=== PATIENT | female | born 1990 | race Caucasian/White ===

== ENCOUNTER 2017-02-03 02:01 | Emergency (ER) | payer MEDICAID, OTHER ==
[~2017-02-03] VITALS: Ht 167.6 cm; Wt 94.5 kg
[~2017-02-03 02:01] MED LIST: PREN-127 PO
[2017-02-03] MEDS ORDERED: KETOROLAC 30MG/ML VIAL IM STA (05:19)
[2017-02-03 05:32] LABS: CLARITY URINE CLEAR (CLEAR); COLOR URINE YELLOW (YELLOW); GLUCOSE URINE NEGATIVE (NEGATIVE); KETONES URINE NEGATIVE (NEGATIVE); LEUKOCYTE ESTERASE URINE TRACE (NEGATIVE); NITRITE URINE NEGATIVE (NEGATIVE); OCCULT BLOOD URINE NEGATIVE (NEGATIVE); PROTEIN URINE NEGATIVE (NEGATIVE); SPECIFIC GRAVITY URINE 1.015 (1.005-1.030); UROBILINOGEN URINE 0.2 E.U./dL (0.2-1.0)
[2017-02-03 05:37] LABS: HEMOGLOBIN. 12.2 g/dL (12.0-16.0); MEAN CORPUSCULAR HEMOGLOBIN 29.5 pg (28.0-32.0); MEAN CORPUSCULAR HGB CONC 33.8 g/dL (31.0-37.0); MEAN CORPUSCULAR VOLUME 87.3 fL (81.0-99.0); MEAN PLATELET VOLUME 10.3 fl (7.4-10.4); PLATELET 214 x1000/uL (130-400); RED BLOOD CELL COUNT 4.13 mill/uL (4.2-5.4); RED CELL DISTRIBUTION WIDTH 12.9 % (11.6-14.6); WHITE BLOOD COUNT 11.7 x1000/uL (4.5-11.0)
[2017-02-03 05:38] LABS: DIFFERENTIAL COMMENT 1
[2017-02-03 05:41] LABS: CHLORIDE 106 mEq/L (98-107); INDEX HEMOLYSI 1 (1-3); INDEX ICTERIC 1 (1-4); INDEX LIPEMIC 1 (1-3)
[2017-02-03 05:43] LABS: PROTHROMBIN TIME 10.7 sec
[2017-02-03 05:49] LABS: ALANINE AMINOTRANSFERASE 17 IU/L (13-61); ALBUMIN 3.3 g/dL (3.4-5.0); ANION GAP 8; CALCIUM 8.7 mg/dL (8.5-10.1); CARBON DIOXIDE 32 mEq/L (21-32); LIPASE 121 IU/L (73-393); UREA NITROGEN BLOOD 10 mg/dL (7-21); eGFR > 60 mL/min (>60)
[2017-02-03 06:13] LABS: SQUAMOUS EPITHELIAL CELL URINE FEW /lpf (RARE/1+)
[2017-02-03 06:16] LABS: WBC URINE 0-2 /hpf (0-2)
[2017-02-03 06:30] VITALS: BP 112/64
[2017-02-03 06:33] LABS: RBC URINE NONE SEEN /hpf (0-2)
[2017-02-03 06:34] LABS: BACTERIA URINE TRACE
[2017-02-03 06:48] LABS: PLATELET ESTIMATE NORMAL
== END 2017-02-03 07:25 | disposition home or self-care (01) ==
LOC: ER 02:30
DX: N83.02 Follicular cyst of left ovary (principal); N83.01 Follicular cyst of right ovary
CPT/HCPCS: 36415; 76830; 76856; 80053; 81001; 81025; 83690; 85025; 85610; 96372; 99285; J1885; Z7610

== ENCOUNTER 2018-04-05 10:50 | Observation (INO) | payer OTHER ==
[~2018-04-05] VITALS: Ht 172.7 cm; Wt 83.5 kg
[2018-04-05 12:14] LABS: CLARITY URINE CLEAR (CLEAR); COLOR URINE YELLOW (YELLOW); KETONES URINE NEGATIVE (NEGATIVE); LEUKOCYTE ESTERASE URINE 2+ (NEGATIVE); NITRITE URINE NEGATIVE (NEGATIVE); OCCULT BLOOD URINE NEGATIVE (NEGATIVE); PROTEIN URINE NEGATIVE (NEGATIVE); SPECIFIC GRAVITY URINE 1.018 (1.005-1.030)
[2018-04-05] MEDS ORDERED: LACTATED RINGERS 1,000 ML IV SCH (12:15)
[2018-04-05] MEDS ORDERED: CEFAZOLIN 2,000 MG in DEXT 5% WATER 100 ML IV SCH (12:30)
== END 2018-04-05 13:45 | disposition home or self-care (01) ==
LOC: L&D 10:50
PROVIDERS: ADMIT Obstetrics & Gynecology; ATTEND Obstetrics & Gynecology
DX: O26.892 Other specified pregnancy related conditions, second trimester (principal); R10.32 Left lower quadrant pain; N89.8 Other specified noninflammatory disorders of vagina; Z3A.22 22 weeks gestation of pregnancy
CPT/HCPCS: 81003; 96361; 96365; 99281; G0378; J0690; J7120; 96360; J7060

== ENCOUNTER 2018-07-14 03:29 | Inpatient (IN) | payer OTHER ==
[~2018-07-14] VITALS: Ht 172.7 cm; Wt 104.3 kg
[2018-07-14] MEDS ORDERED: DEXT 5%/LR + PITOCIN 20UNITS/L 1,000 ML IV SCH ×2 (05:06→23:28)
[2018-07-14] MEDS ORDERED: BUTORPHANOL TARTRATE 2 MG/ML VIAL IV PRN (05:15)
[2018-07-14] MEDS ORDERED: NALOXONE HCL 0.4 MG/ML 1ML VIAL IM PRN (05:15)
[2018-07-14] MEDS ORDERED: METHYLERGONOVINE MALEATE 0.2 MG/ML IM PRN (05:15)
[2018-07-14] MEDS ORDERED: LIDOCAINE HCL 1% 20ML VIAL (Pyxis) INJ INFIL SCH (05:15)
[2018-07-14] MEDS: PENICILLIN G POTASSIUM 5 MMU in DEXT 5% WATER 100 ML IV SCH ×2 (05:39→05:46)
[2018-07-14] MEDS: LACTATED RINGERS 1,000 ML IV SCH ×3 (05:46→22:06)
[2018-07-14 06:36] LABS: BASOPHILS % 0.6 % (0.0-2.0); EOSINOPHILS % 1.1 % (0.0-5.0); HEMATOCRIT. 36.9 % (36.0-48.0); HEMOGLOBIN. 12.1 g/dL (12.0-16.0); LYMPHOCYTES % 21.2 % (20.0-50.0); MEAN CORPUSCULAR HEMOGLOBIN 28.7 pg (28.0-32.0); MEAN CORPUSCULAR VOLUME 87.1 fL (81.0-99.0); MEAN PLATELET VOLUME 10.7 fl (7.4-10.4); MONOCYTES % 4.7 % (2.0-8.0); NEUTROPHILS % 72.4 % (40.0-76.0); PLATELET 292 x1000/uL (130-400); RED BLOOD CELL COUNT 4.23 mill/uL (4.2-5.4); RED CELL DISTRIBUTION WIDTH 14.5 % (11.6-14.6)
[2018-07-14 06:48] LABS: CLARITY URINE CLEAR (CLEAR); COLOR URINE YELLOW (YELLOW); INR 0.9; KETONES URINE NEGATIVE (NEGATIVE); LEUKOCYTE ESTERASE URINE NEGATIVE (NEGATIVE); NITRITE URINE NEGATIVE (NEGATIVE); OCCULT BLOOD URINE NEGATIVE (NEGATIVE); PARTIAL THROMBOPLASTIN TIME 26.5 sec (23.4-31.0); PROTEIN URINE NEGATIVE (NEGATIVE); PROTHROMBIN TIME 9.3 sec (9.1-11.1); UROBILINOGEN URINE 0.2 E.U./dL (0.2-1.0)
[2018-07-14 06:58] LABS: *AMPHETAMINES SCREEN URINE NEGATIVE (NEGATIVE); *BARBITURATES SCREEN URINE NEGATIVE (NEGATIVE); *BENZODIAZEPINES SCREEN URINE NEGATIVE (NEGATIVE); *COCAINE SCREEN URINE NEGATIVE (NEGATIVE)
[2018-07-14 06:59] LABS: CANNABINOID URINE SCREEN NEGATIVE (NEGATIVE); METHADONE URINE SCREEN NEGATIVE (NEGATIVE); OPIATES URINE SCREEN NEGATIVE (NEGATIVE); PHENCYCLIDINE URINE SCREEN NEGATIVE (NEGATIVE)
[2018-07-14 07:36] LABS: HEPATITIS B SURFACE ANTIGEN NEGATIVE
[2018-07-14] MEDS: PENICILLIN G POTASSIUM 2.5 MMU in DEXTROSE 5% WATER 50 ML IV SCH ×3 (13:52→22:05)
[2018-07-14] MEDS ORDERED: BUPIVACAINE HCL/NS/PF EPIDURAL 100 ML EP ONE (20:13)
[2018-07-14] MEDS ORDERED: FENTANYL CITRATE/PF 50MCG/ML 2ML VIAL ONE (20:14)
[2018-07-14] MEDS ORDERED: DIPHENHYDRAMINE 25MG CAPSULE PO PRN (23:30)
[2018-07-14] MEDS ORDERED: HEMORRHOIDAL SUPP PR PRN (23:30)
[2018-07-14] MEDS ORDERED: LANOLIN OINT 0.25 GM TUBE TOP PRN (23:30)
[2018-07-14] MEDS ORDERED: GLYCERIN/WITCH HAZEL LEAF MEDICATED PAD TOP PRN (23:30)
[2018-07-14] MEDS ORDERED: BISACODYL 10MG SUPP PR PRN (23:30)
[2018-07-14] MEDS ORDERED: ACETAMINOPHEN WITH CODEINE 300/30MG TABLET PO PRN ×2 (23:30)
[2018-07-15 02:10] VITALS: BP 125/68
[2018-07-15 04:00] VITALS: BP 121/65
[2018-07-15 07:51] VITALS: BP 107/60
[2018-07-15] MEDS: SIMETHICONE 80MG TABLET CHEW PO SCH ×4 (08:48→21:01)
[2018-07-15] MEDS: IBUPROFEN 400MG TABLET PO PRN ×2 (08:48→17:31)
[2018-07-15] MEDS: PRENATAL VIT/FE FUMARATE/FA TABLET PO SCH (08:48)
[2018-07-15] MEDS ORDERED: TETANUS, DIPHTHERIA, PERTUSSIS VAC/PF 0.5ML (>7YR OLD) IM ONE (10:00)
[2018-07-15] MEDS ORDERED: INFLUENZA VIRUS VACCINE(AFLURIA) 0.5ML SYR IM ONE (10:00)
[2018-07-15 10:42] LABS: BASOPHILS % 0.2 % (0.0-2.0); EOSINOPHILS % 0.4 % (0.0-5.0); HEMATOCRIT. 35.1 % (36.0-48.0); HEMOGLOBIN. 11.7 g/dL (12.0-16.0); LYMPHOCYTES % 12.9 % (20.0-50.0); MEAN CORPUSCULAR VOLUME 87.1 fL (81.0-99.0); MEAN PLATELET VOLUME 10.6 fl (7.4-10.4); MONOCYTES % 6.5 % (2.0-8.0); PLATELET 267 x1000/uL (130-400); RED BLOOD CELL COUNT 4.02 mill/uL (4.2-5.4); RED CELL DISTRIBUTION WIDTH 14.5 % (11.6-14.6)
[2018-07-15] MEDS: FERROUS SULFATE 325MG TABLET PO SCH ×2 (13:08→17:31)
[2018-07-15 16:15] VITALS: BP 104/60
[2018-07-15 20:00] VITALS: BP 120/75
[2018-07-15] MEDS ORDERED: DOCUSATE SODIUM 100MG CAPSULE PO SCH (21:00)
[2018-07-16 06:00] VITALS: BP 115/68
[2018-07-16 07:54] VITALS: BP 102/50
[2018-07-16] MEDS: PRENATAL VIT/FE FUMARATE/FA TABLET PO SCH (08:29)
[2018-07-16] MEDS: FERROUS SULFATE 325MG TABLET PO SCH (08:29)
[2018-07-16] MEDS: SIMETHICONE 80MG TABLET CHEW PO SCH (08:29)
[2018-07-16] MEDS: IBUPROFEN 400MG TABLET PO PRN (08:30)
[2018-07-16] MEDS ORDERED: TETANUS, DIPHTHERIA, PERTUSSIS VAC/PF 0.5ML (>7YR OLD) IM ONE (09:00)
[2018-07-16] MEDS ORDERED: MEDROXYPROGESTERONE ACETATE 150MG/ML VIAL IM ONE (09:00)
[2018-07-16] MEDS ORDERED: INFLUENZA VIRUS VACCINE(AFLURIA) 0.5ML SYR IM ONE (10:00)
== END 2018-07-16 12:45 | disposition home or self-care (01) | DRG 560 ==
LOC: OBSVTOIN 03:29 → L&D 03:29 → 7EST PP/OB 07-15 01:07
PROVIDERS: ADMIT Obstetrics & Gynecology; ATTEND Obstetrics & Gynecology
PROC: 3E0R3BZ Introduction of Anesthetic Agent into Spinal Canal, Percutaneous Approach (ICD-10-PCS; 2018-07-14)
PROC: 00HU33Z Insertion of Infusion Device into Spinal Canal, Percutaneous Approach (ICD-10-PCS; 2018-07-14)
PROC: 10E0XZZ Delivery of Products of Conception, External Approach (ICD-10-PCS; principal; 2018-07-14 23:12)
DX: O69.81X0 Labor and delivery complicated by cord around neck, without compression, not applicable or unspecified (principal); O99.324 Drug use complicating childbirth; F12.10 Cannabis abuse, uncomplicated; Z37.0 Single live birth; Z3A.36 36 weeks gestation of pregnancy
CPT/HCPCS: 36415; 80305; 86592; 86703; 86762; 86850; 86900; 87340; 90471; 90686; 90715; 96365; 96366; 99281; G0378; J2310; J2540; J2590; J3010; J3490; J7030; J7060; J7120

== ENCOUNTER 2019-07-09 21:12 | Observation (INO) | payer OTHER ==
[2019-07-09] MEDS ORDERED: LACTATED RINGERS 1,000 ML IV SCH (22:23)
[2019-07-09 23:30] LABS: CLARITY URINE CLEAR (CLEAR); COLOR URINE YELLOW (YELLOW); KETONES URINE NEGATIVE (NEGATIVE); LEUKOCYTE ESTERASE URINE 1+ (NEGATIVE); NITRITE URINE NEGATIVE (NEGATIVE); OCCULT BLOOD URINE NEGATIVE (NEGATIVE); PROTEIN URINE NEGATIVE (NEGATIVE); SPECIFIC GRAVITY URINE 1.019 (1.005-1.030)
[2019-07-09 23:50] LABS: *AMPHETAMINES SCREEN URINE NEGATIVE (NEGATIVE); *BARBITURATES SCREEN URINE NEGATIVE (NEGATIVE); *BENZODIAZEPINES SCREEN URINE NEGATIVE (NEGATIVE); *COCAINE SCREEN URINE NEGATIVE (NEGATIVE); METHADONE URINE SCREEN NEGATIVE (NEGATIVE); OPIATES URINE SCREEN NEGATIVE (NEGATIVE)
[2019-07-09 23:51] LABS: CANNABINOID URINE SCREEN NEGATIVE (NEGATIVE); PHENCYCLIDINE URINE SCREEN NEGATIVE (NEGATIVE)
== END 2019-07-10 00:35 | disposition home or self-care (01) ==
LOC: OB TRIAGE 21:12
PROVIDERS: ADMIT Obstetrics & Gynecology; ATTEND Obstetrics & Gynecology
DX: O26.893 Other specified pregnancy related conditions, third trimester (principal); M54.9 Dorsalgia, unspecified; O62.9 Abnormality of forces of labor, unspecified; Z3A.36 36 weeks gestation of pregnancy
CPT/HCPCS: 80305; 81003; 99281; G0378

== ENCOUNTER 2019-07-17 13:15 | Observation (INO) | payer OTHER ==
[~2019-07-17] VITALS: Ht 170.2 cm; Wt 97.1 kg
== END 2019-07-17 15:30 | disposition home or self-care (01) ==
LOC: 8 EST LDRP 13:15
PROVIDERS: ADMIT Specialist; ATTEND Specialist
DX: O62.9 Abnormality of forces of labor, unspecified (principal); O42.92 Full-term premature rupture of membranes, unspecified as to length of time between rupture and onset of labor; Z3A.37 37 weeks gestation of pregnancy
CPT/HCPCS: 99281; G0378

== ENCOUNTER 2019-08-02 19:32 | Observation (INO) | payer OTHER ==
[~2019-08-02] VITALS: Ht 170.2 cm; Wt 104.3 kg
[2019-08-02] MEDS ORDERED: PNV1TABL50 PO (20:51)
== END 2019-08-02 21:04 | disposition home or self-care (01) ==
LOC: 8 EST LDRP 19:32
PROVIDERS: ADMIT Obstetrics & Gynecology; ATTEND Obstetrics & Gynecology
DX: O62.9 Abnormality of forces of labor, unspecified (principal); Z3A.39 39 weeks gestation of pregnancy
CPT/HCPCS: 99281; G0378

== ENCOUNTER 2022-03-21 11:07 | Emergency (ER) | payer MEDICAID, OTHER ==
[~2022-03-21] VITALS: Ht 172.7 cm; Wt 82.0 kg
[~2022-03-21 11:07] MED LIST changes: +PNV1TABL50 PO; -PREN-127 PO
[2022-03-21] MEDS ORDERED: KETOROLAC 30MG/ML VIAL IM ONE (13:15)
[2022-03-21] MEDS ORDERED: CYCLOBENZAPRINE 10MG TABLET PO ONE (13:15)
[2022-03-21] MEDS ORDERED: CYCL10TA21 MT (13:21)
[2022-03-21] MEDS ORDERED: NAPR-1176 MT (13:21)
[2022-03-21 14:04] LABS: CLARITY URINE CLEAR (CLEAR); COLOR URINE YELLOW (YELLOW); KETONES URINE NEGATIVE (NEGATIVE); LEUKOCYTE ESTERASE URINE 1+ (NEGATIVE); NITRITE URINE NEGATIVE (NEGATIVE); OCCULT BLOOD URINE NEGATIVE (NEGATIVE); PH URINE 5.5 (4.5-8.0); PROTEIN URINE NEGATIVE (NEGATIVE); SPECIFIC GRAVITY URINE 1.021 (1.005-1.030); UROBILINOGEN URINE 0.2 E.U./dL (0.2-1.0)
[2022-03-21] MEDS ORDERED: CEPH500C2 MT (14:52)
[2022-03-21 15:23] VITALS: BP 136/64
== END 2022-03-21 15:24 | disposition home or self-care (01) ==
LOC: ER 11:07
DX: M54.9 Dorsalgia, unspecified (principal); N39.0 Urinary tract infection, site not specified
CPT/HCPCS: 72100; 81003; 87086; 96372; 99284; J1885

== ENCOUNTER 2023-05-09 16:26 | Emergency (ER) | payer MEDICAID, OTHER ==
[~2023-05-09] VITALS: Ht 172.7 cm; Wt 100.0 kg
[~2023-05-09 16:26] MED LIST changes: +CEPH500C2 MT; +CYCL10TA21 MT; +NAPR-1176 MT
[2023-05-09 16:32] VITALS: BP 136/59; O2SAT 98
[2023-05-09] MEDS ORDERED: IBUPROFEN 600MG TABLET PO ONE (18:00)
[2023-05-09] MEDS ORDERED: IBUP-2029 MT (19:28)
[2023-05-09 19:49] VITALS: PULSE 77; RESP 18; TEMP 98.5
== END 2023-05-09 19:52 | disposition home or self-care (01) ==
LOC: ER 16:26
DX: S90.02XA Contusion of left ankle, initial encounter (principal); S30.0XXA Contusion of lower back and pelvis, initial encounter; W20.8XXA Other cause of strike by thrown, projected or falling object, initial encounter; Y93.89 Activity, other specified; Y92.89 Other specified places as the place of occurrence of the external cause; Y99.8 Other external cause status
CPT/HCPCS: 73610; 81025; 99283